=== PATIENT | male | born 1950 | race Caucasian/White ===

== ENCOUNTER 2017-03-24 13:18 | Emergency (ER) | payer OTHER ==
[2017-03-24] MEDS ORDERED: EPINEPHrine HCL (1:10,000) 1 MG/10 ML SYRINGE IV ONE (13:19)
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
== END 2017-03-24 19:00 | disposition expired ==
LOC: EDBD 13:18 → NEPI 13:18
DX: I46.9 Cardiac arrest, cause unspecified (principal); I25.10 Atherosclerotic heart disease of native coronary artery without angina pectoris; Z95.5 Presence of coronary angioplasty implant and graft; S09.90XA Unspecified injury of head, initial encounter; Y93.11 Activity, swimming
CPT/HCPCS: 31500; 92950; 99285; J0171; 12004